=== PATIENT | male | born 1970 | race African-American/Black ===

== ENCOUNTER 2018-04-26 04:10 | Inpatient (IN) | payer MEDICAID ==
[~2018-04-26] VITALS: Ht 185.4 cm; Wt 100.2 kg
[2018-04-26 05:03] LABS: BASOPHILS % 0.8 % (0.0-2.0); HEMATOCRIT. 47.4 % (42.0-52.0); HEMOGLOBIN. 15.8 g/dL (14.0-18.0); LYMPHOCYTES % 28.2 % (20.0-50.0); MEAN CORPUSCULAR HEMOGLOBIN 27.6 pg (28.0-32.0); MEAN CORPUSCULAR VOLUME 82.7 fL (80.0-94.0); MEAN PLATELET VOLUME 9.1 fl (7.4-10.4); MONOCYTES % 8.6 % (2.0-8.0); NEUTROPHILS % 60.4 % (40.0-76.0); PLATELET 226 x1000/uL (130-400); RED BLOOD CELL COUNT 5.73 mill/uL (4.7-6.1); RED CELL DISTRIBUTION WIDTH 14.5 % (11.6-14.6)
[2018-04-26 05:16] LABS: CHLORIDE 110 mEq/L (98-107)
[2018-04-26] MEDS ORDERED: FUROSEMIDE 40MG/4ML VIAL IVP ONE (07:45)
[2018-04-26] MEDS ORDERED: IPRATROPIUM/ALBUTEROL 0.5-3(2.5)MG/3ML NEB HHN PRN (09:00)
[2018-04-26] MEDS ORDERED: ACETAMINOPHEN 325MG TABLET PO PRN (09:00)
[2018-04-26] MEDS ORDERED: ONDANSETRON HCL 4MG/2ML INJ IV PRN (09:00)
[2018-04-26 09:58] LABS: CLARITY URINE CLEAR (CLEAR); COLOR URINE YELLOW (YELLOW); KETONES URINE NEGATIVE (NEGATIVE); LEUKOCYTE ESTERASE URINE NEGATIVE (NEGATIVE); NITRITE URINE NEGATIVE (NEGATIVE); OCCULT BLOOD URINE NEGATIVE (NEGATIVE); PH URINE 6.5 (4.5-8.0); PROTEIN URINE NEGATIVE (NEGATIVE); SPECIFIC GRAVITY URINE 1.008 (1.005-1.030); UROBILINOGEN URINE 0.2 E.U./dL (0.2-1.0)
[2018-04-26 10:15] LABS: *COCAINE SCREEN URINE NEGATIVE (NEGATIVE); OPIATES URINE SCREEN NEGATIVE (NEGATIVE)
[2018-04-26 10:16] LABS: CANNABINOID URINE SCREEN NEGATIVE (NEGATIVE); PHENCYCLIDINE URINE SCREEN NEGATIVE (NEGATIVE)
[2018-04-26 10:19] LABS: *AMPHETAMINES SCREEN URINE PRESUMTIVE POSITIVE (NEGATIVE)
[2018-04-26 10:22] LABS: *BARBITURATES SCREEN URINE NEGATIVE (NEGATIVE)
[2018-04-26 10:23] LABS: METHADONE URINE SCREEN NEGATIVE (NEGATIVE)
[2018-04-26 10:24] LABS: *BENZODIAZEPINES SCREEN URINE NEGATIVE (NEGATIVE)
[2018-04-26 12:00] VITALS: BP_SYST 107; BP_SYST 148; BP_DIAS 69; BP_DIAS 99
[2018-04-26] MEDS ORDERED: FUROSEMIDE 40MG/4ML VIAL IVP SCH (12:00)
[2018-04-26] MEDS ORDERED: ENOXAPARIN 30MG/0.3ML SYR SUBCUT SCH (12:00)
[2018-04-26] MEDS ORDERED: AMLODIPINE 5MG TABLET PO NR (13:15)
[2018-04-26] MEDS ORDERED: ATEN50TA PO (13:34)
[2018-04-26] MEDS ORDERED: AMLO5TAB4 PO (13:34)
[2018-04-26] MEDS: LOSARTAN POTASSIUM 50 MG TABLET PO SCH (13:45)
[2018-04-26] MEDS: CARVEDILOL 12.5MG TABLET PO SCH ×2 (13:45→22:04)
[2018-04-26] MEDS: ASPIRIN 81MG EC TABLET PO SCH (13:45)
[2018-04-26] MEDS ORDERED: PNEUMOCOCCAL 23-VAL P-SAC VAC 0.5 ML IM ONE (14:15)
[2018-04-26] MEDS ORDERED: INFLUENZA VIRUS VACCINE(AFLURIA) 0.5ML SYR IM ONE (14:15)
[2018-04-26 16:00] VITALS: BP 126/90
[2018-04-26 16:35] LABS: INR 1.1; PROTHROMBIN TIME 11.4 sec (9.1-11.1)
[2018-04-26] MEDS: FUROSEMIDE 40MG/4ML VIAL IVP SCH (19:26)
[2018-04-26] MEDS: ENOXAPARIN 100MG/ML SYR SUBCUT SCH (19:29)
[2018-04-26] MEDS: NICOTINE 7MG PATCH TD SCH (19:34)
[2018-04-26 20:00] VITALS: BP 135/90
[2018-04-27] VITALS: BP 155/86
[2018-04-27 04:00] VITALS: BP 131/76
[2018-04-27] MEDS: ENOXAPARIN 100MG/ML SYR SUBCUT SCH (06:37)
[2018-04-27 07:10] LABS: EOSINOPHILS % 3.4 % (0.0-5.0); HEMOGLOBIN. 15.9 g/dL (14.0-18.0); LYMPHOCYTES % 25.2 % (20.0-50.0); MEAN CORPUSCULAR HEMOGLOBIN 27.7 pg (28.0-32.0); MEAN PLATELET VOLUME 9.5 fl (7.4-10.4); MONOCYTES % 9.4 % (2.0-8.0); PLATELET 226 x1000/uL (130-400); RED BLOOD CELL COUNT 5.73 mill/uL (4.7-6.1); RED CELL DISTRIBUTION WIDTH 14.2 % (11.6-14.6)
[2018-04-27 07:14] LABS: CHLORIDE 108 mEq/L (98-107)
[2018-04-27 08:00] VITALS: BP 116/85
[2018-04-27] MEDS: FUROSEMIDE 40MG/4ML VIAL IVP SCH ×3 (09:00→17:00)
[2018-04-27] MEDS: LOSARTAN POTASSIUM 50 MG TABLET PO SCH (09:00)
[2018-04-27] MEDS: ASPIRIN 81MG EC TABLET PO SCH (09:03)
[2018-04-27] MEDS: CARVEDILOL 12.5MG TABLET PO SCH ×2 (09:04→21:31)
[2018-04-27] MEDS: NICOTINE 7MG PATCH TD SCH (09:04)
[2018-04-27] MEDS: AMLODIPINE 5MG TABLET PO SCH (09:04)
[2018-04-27] MEDS ORDERED: POTASSIUM CHLORIDE 20MEQ TABLET SR PO SCH (10:15)
[2018-04-27 12:00] VITALS: BP 115/66
[2018-04-27 13:52] LABS: T4 FREE 1.44 ng/dL (0.76-1.46)
[2018-04-27 16:00] VITALS: BP 110/68
[2018-04-27 20:00] VITALS: BP 127/69
[2018-04-28] VITALS: BP 136/81
[2018-04-28 04:00] VITALS: BP 118/71
[2018-04-28] MEDS: ENOXAPARIN 100MG/ML SYR SUBCUT SCH (05:05)
[2018-04-28 07:18] LABS: BASOPHILS % 0.6 % (0.0-2.0); HEMOGLOBIN. 16.6 g/dL (14.0-18.0); LYMPHOCYTES % 27.3 % (20.0-50.0); MEAN CORPUSCULAR HEMOGLOBIN 27.9 pg (28.0-32.0); MEAN CORPUSCULAR VOLUME 82.3 fL (80.0-94.0); MEAN PLATELET VOLUME 9.4 fl (7.4-10.4); MONOCYTES % 12.5 % (2.0-8.0); NEUTROPHILS % 55.6 % (40.0-76.0); PLATELET 271 x1000/uL (130-400); RED BLOOD CELL COUNT 5.95 mill/uL (4.7-6.1); RED CELL DISTRIBUTION WIDTH 14.4 % (11.6-14.6)
[2018-04-28 08:00] VITALS: BP 122/82
[2018-04-28] MEDS: ASPIRIN 81MG EC TABLET PO SCH (09:25)
[2018-04-28] MEDS: LOSARTAN POTASSIUM 50 MG TABLET PO SCH (09:25)
[2018-04-28] MEDS: NICOTINE 7MG PATCH TD SCH (09:25)
[2018-04-28] MEDS: AMLODIPINE 5MG TABLET PO SCH (09:25)
[2018-04-28] MEDS: CARVEDILOL 12.5MG TABLET PO SCH (09:25)
[2018-04-28] MEDS: FUROSEMIDE 40MG/4ML VIAL IVP SCH (09:27)
[2018-04-28 11:46] VITALS: BP 125/69
[2018-04-28] MEDS ORDERED: ENOXAPARIN 100MG/ML SYR SUBCUT SCH ×2 (15:10→18:00)
[2018-04-28] MEDS ORDERED: LOSA50TA3 PO (15:29)
[2018-04-28] MEDS ORDERED: ASPI-1158 PO (15:29)
[2018-04-28] MEDS ORDERED: FURO40TA5 MT (15:29)
[2018-04-28] MEDS ORDERED: COR12 PO (15:29)
[2018-04-28] MEDS ORDERED: APIX5TAB MT (15:29)
[2018-04-28 16:00] VITALS: BP 128/73
[2018-04-28 16:06] VITALS: BP 128/73
[2018-04-28 16:42] LABS: HEPATITIS B SURFACE ANTIGEN NEGATIVE
[2018-04-28 17:12] LABS: HEPATITIS A AB IGM NEGATIVE (NEGATIVE)
== END 2018-04-28 17:55 | disposition home or self-care (01) | DRG 194 ==
LOC: ER 04:10 → 5WST 07:57 → ENRESERV 10:09 → CANRESERV 10:09 → ENRESERV 11:21 → 5WST 11:24
PROVIDERS: ADMIT Internal Medicine; ATTEND Internal Medicine
DX: I11.0 Hypertensive heart disease with heart failure (principal); E87.8 Other disorders of electrolyte and fluid balance, not elsewhere classified; Z79.01 Long term (current) use of anticoagulants; I50.31 Acute diastolic (congestive) heart failure; I48.91 Unspecified atrial fibrillation; I45.10 Unspecified right bundle-branch block; J44.9 Chronic obstructive pulmonary disease, unspecified; F17.210 Nicotine dependence, cigarettes, uncomplicated; I25.10 Atherosclerotic heart disease of native coronary artery without angina pectoris; F15.90 Other stimulant use, unspecified, uncomplicated; M10.9 Gout, unspecified; R74.0 Nonspecific elevation of levels of transaminase and lactic acid dehydrogenase [LDH]; E87.6 Hypokalemia; Z71.6 Tobacco abuse counseling; Z71.51 Drug abuse counseling and surveillance of drug abuser; Z88.8 Allergy status to other drugs, medicaments and biological substances; Z79.899 Other long term (current) drug therapy
CPT/HCPCS: 36415; 71045; 76700; 80048; 80061; 80076; 80305; 83735; 83880; 84439; 84443; 84481; 84484; 86705; 86709; 86803; 87340; 90686; 90732; 93005; 93306; 96374; 99285; J1650; J1940